=== PATIENT | male | born 1990 | race Asian ===

== ENCOUNTER → 2017-03-23 | Outpatient (CLI) | payer OTHER ==
--- NOTE | 2017-03-23 19:03 | Diagnostic Imaging Report ---
EXAMINATION: Three views of the lumbar spine. INDICATION: Back pain. FINDINGS: There is straightening of the lumbar spine. The alignment of the posterior spine line is satisfactory, however. The vertebral body heights are preserved. Disc heights are also preserved. The sacroiliac joints appear unremarkable. No osteophyte formation or other degenerative changes identified. The paraspinal soft tissues appear unremarkable. IMPRESSION: Straightening of the lumbar lordosis may relate to muscle spasm. Dictated by: Dictated on workstation # [id number]
== END ==
LOC: RAD 15:33
PROVIDERS: ATTEND Family Medicine
DX: M54.5 Low back pain (principal)
CPT/HCPCS: 72100

== ENCOUNTER 2017-10-04 07:00 | Day surgery (SDC) | payer OTHER ==
[~2017-10-04] VITALS: Ht 172.7 cm; Wt 97.1 kg
--- OUTSIDE RECORDS SUMMARY | 2017-10-04 07:04 | XMS REPORT | Continuity of Care Document ---
Author Author [facility] Organization [facility] Address Unknown Phone Unavailable Allergies Active Description Code Type Severity Reaction Onset Reported/Identified Relationship to Patient Clinical Status Yes No Known Drug Allergies [id number] Drug Allergy Unknown N/A 12/23/2015 Medications There is no data. Problems Date Dx Coded Attending Type Code Diagnosis Diagnosed By 12/23/2015 GERSON ZHONG APRN Ot R07.89 OTHER CHEST PAIN 12/28/2015 LAURY, BOBAN N Ot E66.9 12/28/2015 LAURY, BOBAN N Ot R00.2 12/28/2015 LAURY, BOBAN N Ot R79.89 12/28/2015 MARIELA DURON [facility] CCDS Ot R00.2 02/22/2016 LAURY, BOBAN N Ot D75.1 SECONDARY POLYCYTHEMIA 02/22/2016 LAURY, BOBAN N Ot E66.9 OBESITY, UNSPECIFIED 02/22/2016 LAURY, BOBAN N Ot R00.2 PALPITATIONS 02/22/2016 LAURY, BOBAN N Ot R79.89 OTHER SPECIFIED ABNORMAL FINDINGS OF BLO 02/24/2016 LAURY, BOBAN N Ot D75.1 SECONDARY POLYCYTHEMIA 02/24/2016 LAURY, BOBAN N Ot E66.9 OBESITY, UNSPECIFIED 02/24/2016 LAURY, BOBAN N Ot R00.2 PALPITATIONS 03/23/2017 MARIELA DURON [facility], [facility]I [facility] CCDS Ot R00.2 PALPITATIONS 03/23/2017 LAURY, BOBAN N Ot E66.9 OBESITY, UNSPECIFIED 03/23/2017 LAURY, BOBAN N Ot R00.2 PALPITATIONS 03/23/2017 LAURY, BOBAN N Ot R79.89 OTHER SPECIFIED ABNORMAL FINDINGS OF BLO 03/25/2017 ERLINDA APPIAH DO Ot M54.5 LOW BACK PAIN Procedures There is no data. Results There is no data. Encounters ACCT No. Visit Date/Time Discharge Status Pt. Type Provider Facility Loc./Unit Complaint [id number] 03/23/2017 15:33:00 03/23/2017 23:59:59 CLS Outpatient ERLINDA APPIAH DO [facility] RAD LS PAIN M54.5, RIGHT LUMBAR PAIN [id number] 05/20/2016 10:17:00 05/20/2016 23:59:59 CLS Preadmit MICHELLE WARREN [facility] ONC [id number] 02/23/2016 00:08:00 02/23/2016 23:59:59 CLS Preadmit PAMELLA SCHAEFFER [facility] ONC [id number] 01/13/2016 14:31:00 02/22/2016 00:01:00 DIS Outpatient PAMELLA SCHAEFFER [facility] ONC [id number] 12/23/2015 15:12:00 12/23/2015 16:20:00 DIS Emergency GERSON ZHONG APRN [facility] ER CHEST PAIN [id number] 11/05/2015 09:28:00 11/05/2015 23:59:59 CLS Outpatient MARIELA DURON FACC, CRISTHIAN MUSTAFA CCDS [facility] CARD PALPITATIONS [id number] 10/04/2017 07:00:00 ACT Outpatient OLEG NUGENT MD [facility] ENDO RECTAL BLEEDING/MELENA
[2017-10-04] MEDS ORDERED: NS IV 500 ML 500 ML ONE (07:07)
[2017-10-04] MEDS ORDERED: NS IV 500 ML 500 ML IV PRN (07:37)
[2017-10-04 07:40] VITALS: BP 129/87
[2017-10-04] MEDS ORDERED: HURRICAINE EXT TUBE (BENZOCAINE) XX PRN (07:45)
[2017-10-04] MEDS ORDERED: MIDAZOLAM 2 MG/2 ML (VERSED) VIAL ONE ×4 (07:49)
[2017-10-04] MEDS ORDERED: HURRICAINE EXT TUBE (BENZOCAINE) ONE (07:50)
[2017-10-04] MEDS ORDERED: fentaNYL INJECTION 100 MCG/2 ML AMP ONE ×2 (07:50)
[2017-10-04] MEDS: fentaNYL INJECTION 100 MCG/2 ML AMP IVP PRN ×2 (07:52→08:05)
[2017-10-04] MEDS: MIDAZOLAM 2 MG/2 ML (VERSED) VIAL IVP PRN ×3 (07:53→08:05)
--- NOTE | 2017-10-04 07:53 | History & Physicial ---
History of Present Illness History of Present Illness Reason for visit/HPI to undergo an upper endoscopy to investigate melena and concomitant colonoscopy regarding intermittent rectal bleeding. Patient reports history suggestive of hemorrhoids. Date of Admission 10/04/17 Date Seen by Provider: Oct 04, 2017 Time Seen by Provider: 07:51 I consulted on this patient on 10/04/17 07:50 Attending Physician Oleg Whelan MD Admitting Physician Fouzia Pemberton DO Consult Allergies and Home Medications Allergies Coded Allergies: No Known Drug Allergies (Unverified , 12/23/15) Past Wgjcxcw-Wpgskl-Kiyosl Hx Patient Social History Marrital Status: Employed/Student: student, full-time Smoking Status: Never a Smoker Recent Foreign Travel: No Contact w/other who traveled: No Surgeries No Respiratory No Cardiovascular No Neurological No Reproductive System Hx Reproductive Disorders: No Genitourinary No Gastrointestinal Yes Gastroesophageal Reflux, Hemorrhoids Musculoskeletal No Endocrine History of Endocrine Disorders: No HEENT History of HEENT Disorders: No Cancer No Psychosocial History of Psychiatric Problem: No Integumentary History of Skin or Integumenta: No Blood Transfusions History of Blood Disorders: No Constitutional: no symptoms reported EENTM: no symptoms reported Respiratory: no symptoms reported Cardiovascular: no symptoms reported Gastrointestinal: see HPI Genitourinary: no symptoms reported Musculoskeletal: no symptoms reported Skin: no symptoms reported Psychiatric/Neurological: No Symptoms Reported Physical Exam Vital Signs Vital Sign - Last 12Hours 10/04/17 07:40 Temp 97.4 Pulse 105 Resp 18 B/P (MAP) 129/87 (101) Pulse Ox 98 O2 Delivery Room Air Capillary Refill : General Appearance: No Apparent Distress HEENT: Normal ENT Inspection Neck: Normal Inspection Respiratory: Lungs Clear Cardiovascular: Regular Rate, Rhythm Gastrointestinal: Non Tender, Soft Rectal: Deferred Back: Normal Inspection Extremity: Normal Inspection Neurologic/Psychiatric: Oriented x3 Skin: Warm/Dry Assessment/Plan Assessment and Plan gentleman with a history of melena and intermittent rectal bleeding. For upper endoscopy with colonoscopy. Problems: OLEG WHELAN MD Oct 04, 2017 7:53 am
--- NOTE | 2017-10-04 08:20 | Endo Procedure Record ---
Endo Procedure Report Date of Procedure Oct 04, 2017 Surgeon (s) OLEG NUGENT MD Post Procedure/Op Diagnosis EGD: Grade 2 esophagitis. Multiple distal gastric erosions Colonoscopy: Internal hemorrhoids Procedure Performed EGD with antral biopsy for H. pylori Colonoscopy to cecum Description of Procedure Anesthesia Type: Conscious Sedation Specimen(s) collected/removed antral mucosa for pyloric Description of the Procedure indication for procedures: This gentleman came in for an upper endoscopy to evaluate ongoing melena and concomitant colonoscopy, to investigate intermittent rectal bleeding. Informed consent was obtained after reviewing the procedures in detail. Description of the procedures. EGD/antral biopsy: He was placed in left lateral decubitus position and his vital signs were monitored. Conscious sedation was achieved using Versed and fentanyl. The proximal gastroscope was introduced down the esophagus, past the stomach, into the proximal duodenum. Findings: Esophagus: Grade 2 esophagitis. Stomach: Multiple distal gastric erosions and shallow ulcers. Biopsy for H. pylori was obtained. Duodenum: Normal He tolerated the procedure well and was turned around in preparation for colonoscopy. Impression: Melena due to gastric erosions and esophagitis. Will treat with proton pump inhibitors. Colonoscopy: Examination of the perianal area revealed a minimal degree of external hemorrhoids and skin tags. Digital examination was otherwise unremarkable. The colonoscope was then introduced into the rectum and advanced all the way up to the cecum. It was then withdrawn slowly and the mucosa examined in a systematic fashion. Findings: Internal hemorrhoids, the source of his bleeding. He tolerated the procedures well and was taken back to the nursing area in a stable condition. Impression: Rectal bleeding due to hemorrhoids. Will treat conservatively Copies To: ERLINDA APPIAH XAVIER M MD Oct 04, 2017 8:20 am
[2017-10-04] MEDS ORDERED: PANT40TA2 PO (08:21)
--- NOTE | 2017-10-04 08:22 | Discharge Inst-Simple/Standard ---
Discharge Inst-Standard Discharge Medications New, Converted or Re-Newed RX: RX on Chart Patient Instructions/Follow Up Plan of Care/Instructions/FU: F/U on 10/20/17 @3 pm.To avoid nonsteroidals. Stool softeners to avoid constipation Activity as Tolerated: Yes Discharge Diet: No Restrictions OLEG NUGENT MD Oct 04, 2017 8:22 am
[2017-10-04 08:30] VITALS: BP 128/71
[2017-10-04 09:00] VITALS: BP 130/72
[2017-10-04 10:47] VITALS: BP 130/72
== END 2017-10-04 09:15 | disposition home or self-care (01) ==
LOC: ENDO 07:00
PROVIDERS: ATTEND Surgery
DX: K64.8 Other hemorrhoids (principal); K20.9 Esophagitis, unspecified; K25.9 Gastric ulcer, unspecified as acute or chronic, without hemorrhage or perforation; K21.9 Gastro-esophageal reflux disease without esophagitis

== ENCOUNTER → 2018-01-19 | Outpatient (CLI) | payer OTHER ==
[~2018-01-19] MED LIST: CATHETER FLUSH 10 ML SYR IV PRN; IOHEXOL 350 MG/ML 100 ML (OMNIPAQUE 350) VIAL IV ONE; NS 250 ML (IVPB) BAG IV ONE; PANT40TA2 PO
--- NOTE | 2018-01-19 17:32 | Diagnostic Imaging Report ---
PROCEDURE: CT abdomen and pelvis with contrast. TECHNIQUE: Multiple contiguous axial images were obtained through the abdomen and pelvis after administration of intravenous contrast. INDICATION: Abdominal pain. Diarrhea. FINDINGS: Lung bases are clear. There is a large amount of food within the stomach which is distended. Question is raised of possible bezoar. Small bowel is not distended. The colon shows normal stool and gas pattern. The appendix is not dilated. No evidence of colitis. No finding to indicate diverticulitis. There is stool within the colon to the rectum which is solid in nature. No evidence of impacted stool or constipation. There is hepatic steatosis with mild hepatomegaly. The gallbladder and bile ducts are normal. The pancreas and spleen are normal. The adrenal glands are normal. The kidneys are normal. There is normal enhancement of the abdominal organs and vessels following IV contrast. No intra-abdominal adenopathy. No free air. No bony lesions. IMPRESSION: 1. Distended food-filled stomach raising question of possible bezoar. 2. Colon shows normal solid stool pattern without evidence of constipation or impaction. No evidence of inflammatory bowel changes. Appendix is normal. 3. Hepatic steatosis with mild hepatomegaly. Dictated by: Dictated on workstation # [id number]
== END ==
LOC: RAD 16:48
PROVIDERS: ATTEND Nurse Practitioner Family
DX: K76.0 Fatty (change of) liver, not elsewhere classified (principal); K92.1 Melena
CPT/HCPCS: 74177

== ENCOUNTER → 2018-01-26 | Outpatient (CLI) | payer OTHER ==
[~2018-01-26] MED LIST changes: -CATHETER FLUSH 10 ML SYR IV PRN; -IOHEXOL 350 MG/ML 100 ML (OMNIPAQUE 350) VIAL IV ONE; -NS 250 ML (IVPB) BAG IV ONE
== END ==
LOC: LAB 14:26
PROVIDERS: ATTEND Surgery
DX: R19.4 Change in bowel habit (principal); K52.9 Noninfective gastroenteritis and colitis, unspecified
CPT/HCPCS: 36415; 86021; 86671

== ENCOUNTER → 2018-01-30 | Outpatient (CLI) | payer OTHER ==
--- NOTE | 2018-01-30 10:43 | Diagnostic Imaging Report ---
PROCEDURE: US Gallbladder. TECHNIQUE: Multiple real-time grayscale images were obtained over the right upper quadrant in various projections. INDICATION: Right-sided abdominal pain. The liver is normal in size. There is increased echogenicity consistent with hepatic steatosis. No discrete liver mass is identified. The gallbladder is without stones or sludge. No wall thickening or pericholecystic fluid is seen. No biliary duct dilatation is identified. The pancreas is poorly visualized due to bowel gas. The right kidney is unremarkable. There is no ascites. IMPRESSION: 1. Hepatic steatosis. 2. No evidence of cholelithiasis or acute cholecystitis. Dictated by: Dictated on workstation # [id number]
== END ==
LOC: RAD 09:12
PROVIDERS: ATTEND Surgery
DX: K76.0 Fatty (change of) liver, not elsewhere classified (principal)
CPT/HCPCS: 76705